=== PATIENT | male | born 1980 | race African-American/Black ===

== ENCOUNTER 2021-03-11 12:51 | Emergency (ER) | payer SELFPAY ==
[~2021-03-11] VITALS: Ht 165.1 cm; Wt 59.0 kg
[2021-03-11 12:59] VITALS: BP 148/98
--- NOTE | 2021-03-11 13:15 | NUR ---
The patient presents to ER for c/o "Bilateral Foot pain- Homeless/walk a lot". The patient is in room air and denies SOB. Respiration regular and unlabored. Will continue to monitor the patient.
--- NOTE | 2021-03-11 13:50 | NUR ---
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 Patient is a 41-year-old, male. SW met with patient at his bedside in the emergency department. Patient was alert and oriented x4. Patient was resting. Patient appeared disheveled. Per chart, patient reported IV drug use, which includes heroin. Patient did not report heroin withdrawal symptoms. Patient stated that he is currently homeless and reported that he has been homeless for a little over a year. Patient stated that his current source of income is food stamps. SW asked the patient if he has access to social support and patient stated that he has no access to support. SW asked the patient about his history of substance use. Patient reported alcohol, methamphetamine, cocaine, and heroin use. Patient stated that his substance use frequency is daily. Patient is seeking resources for treatment. SW asked the patient if he was aware of medication-assisted treatment. Patient was unaware and patient reported that he has no history of substance use treatment. SW asked the patient if he has a history of mental illness and patient denied history. Patient stated that he experiences auditory hallucinations and stated, I hear voices telling me to do bad things. Patient denied suicidal and homicidal ideation. SW offered the patient homeless resources and substance use resources. SW also offered the patient a list of Outpatient Medication-Assisted Treatment clinics. Patient accepted the resources and thanked SW, stating he would follow up independently. Patient is in the contemplation stage of change for his heroin use. Patient is actively discussing seeking treatment for his heroin use and patient asked multiple providers for more information and resources. Patient appeared distressed and was tearful when discussing his heroin use. Patient seems motivated to follow up with resources. Patient signed the homeless waiver and SW filed the waiver in the patients chart. SW discussed discharge plan with the patient and patient reported he will return to the street and use public transportation. PLAN: Patient will return to his prior living arrangement on the street at the time of discharge. No further SS intervention at this time, however, SW will remain available as needed. RESOURCES: [facility] CL[facility]ICS: [facility]: [address] [place] [address] Intake hours: 5:45am9:00am, walk-ins Sunday, Sunday, [facility]: [address] [place] [address] Intake hours: 5:45am12:30pm, Sunday and [facility]: [address] [place] [address] Intake hours: 8:00am2:00pm, Sunday through Sunday Year-round shelters: [facility] [place] [address] [place] [address] ; [facility] [place] [address] [place] [address]; [facility] Ma[address]viqm[address] [facility] [address] SPA 4 | [facility] Recreation [place] Provider: [facility] Address: [address], [address] # of Beds: 48 Population Served: [facility] Provider: [facility] Address: [address] [facility], [address] # of Beds: 73 Population Served: [facility] 6 | [facility] Provider: [facility] Address: [address] [facility], [address] # of Beds: 63 Population Served: [facility] 3 | [facility] Provider: [facility] [place] Address: [address] [facility], [address] # of Beds: 75 Population Served: [facility] SPA 8 | [facility] Provider: [facility] [place] Address: [address] [facility], [address] # of Beds: 80 Population Served: [facility] SPA 1 | [facility] Provider: [facility] [place] Address: [address] [facility], [address] # of Beds: 85 Population Served: [facility] 2 | [facility] Provider: [facility] [place] Address: Confidential (please call for location) # of Beds: 52 Population Served: [facility] SPA 4 | [facility] Provider: Charbel Hardin Address: [address] [facility], [address] # of Beds: 49 Population Served: [facility] Provider: [facility] Address: [address] [place] [address], [address] # of Beds: 27 Population Served: [facility]: [facility]: [address] [place] ; [facility] [address] [facility] ; [facility] [address] [facility] . Food Resources: [place] [facility] at [facility]- [address] [facility]; Meet Each Need with [facility] ([facility]) [address] [facility]; [facility] [address] [facility]; [facility] [address] [facility]. Mental Health resources provided: [facility] [address] [place], [place] [address] ; [facility] Mental Health [employer] [address] [facility] [address], [place], [place] [id number] ; [facility] [address] [place], [place] [id number] ; [facility] [place], [place] [address] Healthcare Clinics: [facility] [address] [facility], [address] [place]. [place] ; [facility] [address] [facility] [address] [place] [address]; [facility] [address] [facility] [place] [phone] Counseling--Outpatient [facility] [address] [facility], [address] [place], [place] [id number] (Specializes in in-depth psychotherapy for emotional distress: anxiety, depression, interpersonal conflicts, life transitions, childhood abuse) PSYCHIATRIC OUTPATIENT SERVICES [facility] Partial Hospitalization and Intensive Outpatient Program (Managed Care and [place] Only) [address] [facility] [address] [facility] Partial Hospitalization and Outpatient Program [address] [place], [place] [id number] [facility] Partial Hospitalization and Outpatient Program [address] [place] [address] [facility] [address] [place] [address] [facility] Partial Hospitalization and Outpatient Program [address] [place], [place] [phone] Substance use resources provided included: [facility] Substance Abuse Self-Helpline (SAS) ; [facility] [address] [facility] [place] [address] ; [facility] [address] [facility] [address] ; [facility] [address] [facility] [id number] ; [facility] [address] [facility] [facility] [phone] ; [facility] [address] [facility] [address] ; [facility]; [facility] [place]; [facility] [place]; Alcoholics Anonymous -SFV"
--- NOTE | 2021-03-11 13:51 | NUR ---
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
[2021-03-11] MEDS ORDERED: NALO4SPR NS (14:04)
[2021-03-11] MEDS ORDERED: KETOROLAC TROMETHAMINE 15 MG/ML VIAL ONE (14:37)
[2021-03-11] MEDS ORDERED: IBUP-1955 PO (14:38)
[2021-03-11] MEDS: KETOROLAC TROMETHAMINE INJ 30 MG/ML VIAL IM ONE (14:51)
== END 2021-03-11 14:13 | disposition home or self-care (01) ==
LOC: ER 12:55
DX: F11.10 Opioid abuse, uncomplicated (principal); M79.672 Pain in left foot; M79.671 Pain in right foot; Z59.0 Homelessness
CPT/HCPCS: 99283; J1885